=== PATIENT | male | born 1965 | race African-American/Black ===

== ENCOUNTER 2018-08-24 09:40 | Day surgery (SDC) | payer OTHER ==
[2018-08-19 12:55] VITALS: BMI 39.0
[2018-08-24] MEDS ORDERED: MIDAZOLAM HCL 2 MG/2 ML SINGLE DOSE VIAL ONE ×2 (12:39→12:55)
[2018-08-24] MEDS ORDERED: PROPOFOL 20 ML ONE ×3 (12:39→13:13)
[2018-08-24] MEDS ORDERED: BUPIVACAINE HCL/PF 0.5% (5MG/ML) 10 ML VIAL ONE ×2 (12:52→13:19)
[2018-08-24] MEDS ORDERED: oxyCODONE HCL 5 MG TABLET PO PRN (12:57)
[2018-08-24] MEDS ORDERED: ONDANSETRON 4 MG/2 ML VIAL IVPUSH PRN (12:57)
[2018-08-24] MEDS ORDERED: MORPHINE SULFATE 10 MG/1 ML *VIAL ONE (12:59)
[2018-08-24] MEDS ORDERED: LACTATED RINGERS SOLUTION 1,000 ML IV SCH (13:00)
[2018-08-24] MEDS ORDERED: DEXAMETHASONE SOD PHOSPHATE 4 MG/1 ML VIAL ONE (13:32)
[2018-08-24] MEDS ORDERED: ceFAZolin SODIUM 1 GM VIAL ONE (13:34)
[2018-08-24] MEDS ORDERED: BUPIVACAINE HCL 0.5% 250 MG/50 ML VIAL NR ONE (13:38)
[2018-08-24] MEDS ORDERED: DESFLURANE GAS 240 ML BOTTLE IH ONE (13:46)
[2018-08-24] MEDS ORDERED: morphine CARPU-JECT 10 MG/1 ML DISP.SYRIN NR ONE (13:55)
[2018-08-24 14:29] VITALS: TEMP 98.3
[2018-08-24 15:37] VITALS: PULSE 70
[2018-08-24 15:41] VITALS: BP 125/69
--- NOTE | 2018-08-25 08:17 | OP ---
DATE OF OPERATION: 08/24/2018 PREOPERATIVE DIAGNOSIS: Torn medial meniscus to the left knee. POSTOPERATIVE DIAGNOSIS: Torn medial and lateral meniscus, left knee, with chondromalacia, hypertrophic synovium and joint debris. PROCEDURE PERFORMED: Operative arthroscopy, left knee, with partial medial and lateral meniscectomy, chondroplasty, synovectomy, joint debridement. SURGEON: Kristyn Parks MD SIDE SPLITTER: Ang Garcia, REF-RNF ANESTHESIA: Megan Bryan, REF-DO; general anesthesia. The procedure consisted of the patient being brought in the operating room and gently transferred from the stretcher to the OR table with all bony prominences well padded. The left leg was prepared and draped in a sterile fashion. Patient was given intravenous antibiotics and copious irrigation throughout the procedure to minimize risk of infection. Complete risk, benefit and alternative discussion was conducted with the patient which was inclusive of but not limited to infection, bleeding, , paralysis, increased pain, need for repeat surgery. Patient asked questions, understood the nature of the procedure and the procedure. Following sterile preparation and draping of the left knee an appropriate timeout was conducted which was inclusive of but not limited to surgeon, anesthesiologist, type of surgery, site of surgery. Following sterile preparation and draping of the left knee the leg was exsanguinated using an Esmarch bandage and the tourniquet inflated to 350 mmHg. Suprapatellar, medial and lateral joint line portals were used to introduce the arthroscope and arthroscopic instruments. The knee was examined. There was noted to be hypertrophic synovium in the suprapatellar pouch. Partial synovectomy was performed. Inferior surface of the patella damage consistent with chondromalacia. This was . Medial and lateral gutters were without plica. No loose body. Medial meniscus was found to have a tear of the posterior horn and this was resected using a shaver and radiofrequency wand. The intercondylar region was noted to have joint debris and a joint debridement was performed. Cruciate ligaments were found to be intact. Lateral meniscus was found to have a tear of the posterior horn and it was resected using a shaver and radiofrequency wand. The knee was then copiously irrigated with sterile saline irrigant. The wounds were closed with 4-0 undyed Vicryl followed by Steri-Strips, Xeroform, 4 x 4's, sterile wrap with Narinder bandage and knee immobilizer. Tourniquet was deflated after approximately 20 minutes of surgical time. There were no intraoperative complications. KRISTYN PARKS M.D. [id number]
== END 2018-08-24 15:43 | disposition home or self-care (01) ==
LOC: FASU 09:40
PROVIDERS: ATTEND Orthopaedic Surgery
PROC: 0SBD4ZZ Excision of Left Knee Joint, Percutaneous Endoscopic Approach (ICD-10-PCS; 2018-08-24)
PROC: 0SBD4ZZ Excision of Left Knee Joint, Percutaneous Endoscopic Approach (ICD-10-PCS; 2018-08-24)
PROC: 0SBD4ZZ Excision of Left Knee Joint, Percutaneous Endoscopic Approach (ICD-10-PCS; principal; 2018-08-24 13:40)
DX: S83.282A Other tear of lateral meniscus, current injury, left knee, initial encounter (principal); M22.42 Chondromalacia patellae, left knee; M67.262 Synovial hypertrophy, not elsewhere classified, left lower leg; M25.862 Other specified joint disorders, left knee
CPT/HCPCS: 94760